=== PATIENT | female | born 1985 | race Caucasian/White ===

== ENCOUNTER 2016-08-01 17:25 | Emergency (ER) | payer OTHER ==
[~2016-08-01] VITALS: Ht 154.9 cm; Wt 61.2 kg
[~2016-08-01 17:25] MED LIST: ASA; DEPO SHOTS; EXCEDRIN; LEVOTHYROXIN PO; NAPROSYN500 MG PO; PRENATAL1 TA1; SYNTHROID0.075 MG PO
[2016-08-01 17:41] VITALS: BP 124/82
--- NOTE | 2016-08-01 18:26 | NUR ---
PT OT BED 1 AT THIS TIME
--- NOTE | 2016-08-01 18:56 | NUR ---
PATIENT PRESENTS TO ED DUE TO VAGINAL BLEEDING MORE THAN 3 WEEKS LMP 05/26/16. DENIES N/V/D; SKIN IS PINK/WARM/DRY; AAOX4 WITH EVEN AND STEADY GAIT; LUNGS CLEAR BL; HR EVEN AND REGULAR; PT DENIES ANY FEVER, CP, SOB, OR COUGH AT THIS TIME; PATIENT STATES PAIN OF 10/10 AT THIS TIME; PATIENT POSITIONED FOR COMFORT; HOB ELEVATED; BEDRAILS UP X2; BED DOWN. CHECK PT PERINEAL AREA AT THIS TIME, PT VERBALIZED I JUST CHANGED MY PADS RIGHTNOW, BUT I USUALLY HAVE MODERATE CLOTS.
--- NOTE | 2016-08-01 19:07 | NUR ---
DR. FOWLER AT BEDSIDE
--- NOTE | 2016-08-01 19:17 | NUR ---
Pt report given to SARAN. Transfer of care at this time.
[2016-08-01] MEDS ORDERED: HYDROcodone/APAP 5/325 MG 1 TAB TAB PO ONE (19:20)
[2016-08-01] MEDS ORDERED: KETOROLAC 30 MG/ML VIAL IM ONE (19:20)
--- NOTE | 2016-08-01 21:15 | NUR ---
Patient discharged with v/s stable. Written and verbal after care instructions given and explaineD BY DR FOWLER Patient alert, oriented and verbalized understanding of instructions. Ambulatory with steady gait. All questions addressed prior to discharge. ID band removed. Patient advised to follow up with PMD. Rx of TYLENOL 3# AND BENTYL given. Patient educated on indication of medication including possible reaction and side effects. Opportunity to ask questions provided and answered.
[2016-08-01 21:42] VITALS: BP 109/89
== END 2016-08-01 21:15 | disposition home or self-care (01) ==
LOC: MED 17:25
DX: O20.8 Other hemorrhage in early pregnancy (principal); Z3A.00 Weeks of gestation of pregnancy not specified
CPT/HCPCS: 36415; 74176; 76817; 80048; 81001; 84702; 85025; 86900; 86901; 96372; 99285; J1885

== ENCOUNTER 2017-12-23 15:34 | Emergency (ER) | payer OTHER ==
[~2017-12-23] VITALS: Ht 152.4 cm; Wt 59.0 kg
[~2017-12-23 15:34] MED LIST changes: -ASA; -DEPO SHOTS; -EXCEDRIN; -LEVOTHYROXIN PO; -NAPROSYN500 MG PO; -PRENATAL1 TA1; -SYNTHROID0.075 MG PO; +[UNRECOGNIZED DRUG - CODE] PO
[2017-12-23 15:38] VITALS: BP 130/75
--- NOTE | 2017-12-23 15:43 | NUR ---
PATIENT PRESENTS TO ED WITH RUQ PAIN WITH NAUSEA EXACERBATED TODAY WHILE AT WORK . PT STATES . DENIES V/D; SKIN IS PINK/WARM/DRY; AAOX4 WITH EVEN AND STEADY GAIT; LUNGS CLEAR BL; HR EVEN AND REGULAR; PT DENIES ANY FEVER, CP, SOB, OR COUGH AT THIS TIME; PATIENT STATES PAIN OF 5/10 AT THIS TIME; VSS; PATIENT POSITIONED FOR COMFORT; HOB ELEVATED; BEDRAILS UP X2; BED DOWN. ER MD MADE AWARE OF PT STATUS.
--- NOTE | 2017-12-23 16:30 | NUR ---
PT RESTING IN BED. NO S/S OF DISTRESS NOTED. RR EVEN/UNLABORED
[2017-12-23] MEDS ORDERED: METOCLOPRAMIDE 10 MG/2 ML INJ VIAL IVP ONE (17:05)
[2017-12-23] MEDS ORDERED: MORPHINE SULFATE 4 MG/ML SYR IVP ONE ×2 (17:05→18:25)
--- NOTE | 2017-12-23 17:15 | NUR ---
PT REQUESTS NEW IV TO BE STARTED. SHE STATES, "I DON'T LIKE IT IN THE HAND, I DON'T WANT ANYTHING PUSHED THROUGH THERE." STARTED NEW IV IN L AC 22G
[2017-12-23 17:21] LABS: BASOPHILS % (AUTO) 0.4 % (0.0-2.0); EOSINOPHILS % (AUTO) 0.4 % (0.0-4.0); HEMATOCRIT 38.7 % (36-48); HEMOGLOBIN 12.4 g/dL (12.0-16.0); LYMPHOCYTES # (AUTO) 2.6 K/uL (2.5-16.5); LYMPHOCYTES % (AUTO) 24.1 % (20.5-51.1); MEAN CORPUSCULAR HEMOGLOBIN 29 pg (27-31); MEAN CORPUSCULAR HGB CONC 32 g/dL (33-37); MEAN CORPUSCULAR VOLUME 89.3 fL (80-94); MONOCYTES # (AUTO) 0.9 K/uL (0.8-1.0); NEUTROPHILS # (AUTO) 7.2 K/uL (1.8-7.7); NEUTROPHILS % (AUTO) 67.1 % (42.2-75.2); PLATELET COUNT (AUTO) 321 K/uL (140-450); RED BLOOD CELL COUNT(AUTO) 4.33 MIL/uL (4.20-5.40); RED CELL DISTRIBUTION WIDTH 15.3 % (11.6-13.7); WHITE BLOOD COUNT (AUTO) 10.7 K/uL (4.8-10.8)
[2017-12-23 17:38] LABS: ANION GAP 13.5 (8-16); CARBON DIOXIDE 23.8 mmol/L (21-32); CREATININE 0.7 mg/dL (0.6-1.3); POTASSIUM 3.3 mmol/L (3.5-5.1)
[2017-12-23 17:46] LABS: TOTAL BILIRUBIN 0.7 mg/dL (0.0-1.0)
--- NOTE | 2017-12-23 17:54 | NUR ---
ENCOURAGED PT TO PROVIDE URINE SAMPLE FOR UA---PT STATES SHE IS UNABLE TO AND WISHES NOT TO GO TO RESTROOM AT THIS TIME TO ATTEMPT.
--- NOTE | 2017-12-23 18:00 | NUR ---
ASKED PT IF SHE COULD PROVIDE URINE AT THIS TIME AND PT STATES, "I CANNOT GO RIGHT NOW, I'LL DO IT WHEN I CAN."
--- NOTE | 2017-12-23 18:30 | NUR ---
PT RESTING COMFORTABLY IN BED. NO S/S OF DISTRESS NOTED. RR EVEN/UNLABORED
--- NOTE | 2017-12-23 19:30 | NUR ---
PT RESTING COMFORTABLY IN BED. NO S/S OF DISTRESS NOTED. PT STATES PAIN IS 2/10 AND TOLERABLE
[2017-12-23 21:12] VITALS: BP 112/79
--- NOTE | 2017-12-23 21:13 | NUR ---
Patient discharged with v/s stable. Written and verbal after care instructions given and explained. Patient alert, oriented and verbalized understanding of instructions. Ambulatory with steady gait. All questions addressed prior to discharge. ID band removed. Patient advised to follow up with PMD. Rx of NORCO, ZOFRAN ODT given. Patient educated on indication of medication including possible reaction and side effects. Opportunity to ask questions provided and answered.
== END 2017-12-23 21:13 | disposition home or self-care (01) ==
LOC: MED 15:34
DX: K80.20 Calculus of gallbladder without cholecystitis without obstruction (principal); E07.9 Disorder of thyroid, unspecified; Z79.899 Other long term (current) drug therapy
CPT/HCPCS: 36415; 76705; 80053; 81025; 83690; 85025; 96374; 96375; 99285; J2270; J2765; Q0092